=== PATIENT | female | born 1935 | race Caucasian/White ===

== ENCOUNTER → 2021-08-31 11:24 | Outpatient (CLI) | payer MEDICARE, SELFPAY ==
[2021-08-31 19:10] LABS: BUN Creatinine Ratio 20.7 (6-22); Blood Urea Nitrogen 17 mg/dL (7-17); Calcium 9.9 mg/dL (8.4-10.2); Carbon Dioxide 31 mmol/L (22-32); Chloride 104 mmol/L (98-107); Estimated Glomerular Filt Rate > 60.0 mL/min (>60); Glucose 94 mg/dL (80-110); HEMOLYSIS < 15 (0-50); Potassium 4.4 mmol/L (3.4-5.1); Sodium 142 mmol/L (137-145)
[2021-09-03 08:30] LABS: Parathyroid Hormone Int 40 pg/mL (15-65)
== END ==
PROVIDERS: Internal Medicine; PCP Family Medicine
DX: E83.52 Hypercalcemia (principal)
CPT/HCPCS: 80048; 83970

== ENCOUNTER → 2024-09-17 10:53 | Outpatient (CLI) | payer MEDICARE, SELFPAY ==
--- NOTE | 2024-09-17 12:03 | DI.MRI.S_ITS ---
PROCEDURE: MR STROKE Pre- and post-contrast brain MRI, non-contrast brain MR angiogram, pre- and postcontrast neck MR angiogram INDICATIONS: ASSESS FOR CVA TECHNIQUE: Brain: Noncontrast axial T1 spin echo, axial T2 fast spin echo, sagittal and axial FLAIR, coronal T2 fast spin echo, axial gradient echo, axial diffusion and ADC through the brain. After the administration of contrast, axial 3D VIBE of the cranial vasculature and brain. Brain MRA: Non-contrast 3-D time of flight MR angiogram, with multiple tfehigp-zarcmbjph-ftntwkxcoj (MIP) reformats performed. Neck MRA: Axial and sagittal TruFISP through the neck. Coronal dynamic MR angiogram during administration of contrast in the arterial and venous phases, with 3-dimenstional sirtugw-vftubayxe-exfknraloy (MIP) reformats constructed from subtraction images. COMPARISON: None. FINDINGS: Image quality: Excellent. BRAIN: CSF spaces: Ventricles are normal in size and shape. Basal cisterns are patent. No extra-axial fluid collections. Brain: No intracranial bleeds or mass effects. There is mild diffuse cerebral volume loss. There is a moderate degree of patchy high FLAIR signal within the periventricular and subcortical white matter. Myles-white matter interface is normal. Diffusion weighted images show no acute infarct. Brainstem appears normal. Normal intravascular flow voids are present. No abnormal intracranial enhancement. Skull and face: Calvarial marrow signal is normal. Orbits appear normal. Sinuses: Right maxillary sinus retention cyst. BRAIN MR ANGIOGRAM: Anterior circulation: Intracranial internal carotid arteries are normal in size and enhancement. The flow within the paired anterior cerebral arteries is normal and symmetric. The flow within the middle cerebral arteries is normal and symmetric. The anterior communicating artery is seen. No stenoses, occlusions, or aneurysms. Posterior circulation: The visualized portions of the vertebral arteries demonstrate normal caliber. The left vertebral artery appears to terminate in a posterior inferior cerebellar artery. There is moderate to severe narrowing of the proximal P2 segment of the left posterior cerebral artery. The flow within the posterior cerebral arteries is otherwise normal and symmetric. NECK MR ANGIOGRAM: Carotids: Great vessels demonstrate a conventional anatomy as they arise from the aortic arch. The origins of the common carotid arteries appear patent. The calibers and courses of both common carotid arteries are normal. The bifurcation regions appear normal bilaterally. Roughly 10% stenosis of the proximal left internal carotid artery. Roughly 20% stenosis of the proximal right internal carotid artery. Posterior circulation: Right vertebral artery origin is patent. Left vertebral artery origin is not well seen. More superior portions of both vertebral arteries demonstrate normal course and caliber. Left vertebral artery terminates in a posterior inferior cerebellar artery. Miscellaneous: Subclavian arteries appear patent. Pre-contrast images through the neck show no soft tissue abnormalities. IMPRESSION: BRAIN MRI: 1. Mild volume loss and small vessel ischemic disease. 2. No acute process. No recent infarct. BRAIN MR ANGIOGRAM: 1. Left posterior cerebral artery stenosis. Otherwise negative examination. NECK MR ANGIOGRAM: 1. Mild proximal bilateral internal carotid artery stenosis. 2. Suboptimal evaluation of the left vertebral artery origin. Dictated by: Romana Luna M.D. on 09/17/2024 at 13:55 Approved by: oRmana Luna M.D. on 09/17/2024 at 14:23
== END ==
PROVIDERS: PCP Family Medicine; Referring Provider Internal Medicine; Visit Provider Internal Medicine
DX: I66.22 Occlusion and stenosis of left posterior cerebral artery (principal); I65.23 Occlusion and stenosis of bilateral carotid arteries; R40.4 Transient alteration of awareness; R42 Dizziness and giddiness; E78.5 Hyperlipidemia, unspecified
CPT/HCPCS: 70544; 70549; 70553; A9579

== ENCOUNTER → 2025-04-11 15:47 | Outpatient (CLI) | payer MEDICARE, SELFPAY | PROVIDERS: Visit Provider Physician Assistant Medical | DX: S81.801A Unspecified open wound, right lower leg, initial encounter (principal); X58.XXXA Exposure to other specified factors, initial encounter | CPT/HCPCS: 87070; 87075; 87077; 87147; 87205 ==